=== PATIENT | female | born 1955 | race Caucasian/White ===

== ENCOUNTER → 2019-01-25 | Outpatient (CLI) | payer MEDICARE ==
--- NOTE | 2019-01-25 08:32 | US ---
EXAM DESCRIPTION: Gall Bladder CLINICAL HISTORY: UPPER ABDOMEN PAIN COMPARISON: None Available. TECHNIQUE: Right upper quadrant ultrasound FINDINGS: Pancreas: Visualized portions of the pancreas are unremarkable. Bowel gas obscures some areas. Aorta/inferior vena cava: No aortic aneurysm. Normal inferior vena cava. Liver: The liver is homogeneous in texture with normal echogenicity of the hepatic parenchyma. No focal liver lesion or intrahepatic bile duct dilatation. No liver surface irregularity. Normal appearance of the portal vein and hepatic veins. Gallbladder: Gallbladder appears normal with no intraluminal stones or wall thickening. Common bile duct: Normal caliber measuring 3.2 mm. Right kidney: Renal length is 10.6 cm. Normal cortical echogenicity. Cortical thickness is normal. No hydronephrosis is seen. No renal mass or shadowing calculus. IMPRESSION: No diagnostic abnormality is identified on sonographic examination of the right upper quadrant. Electronically signed by: Kvng Casiano MD 01/25/2019 8:30 AM CDT
== END ==
LOC: US 08:00
PROVIDERS: ATTEND Emergency Medicine
DX: R10.10 Upper abdominal pain, unspecified (principal)

== ENCOUNTER → 2019-02-18 | Outpatient (CLI) | payer MEDICARE ==
--- NOTE | 2019-02-19 10:14 | CT ---
Procedure: CT LUNG SCREENING Exam Date: 02/18/2019. Ordering Provider: EDNA HARRISON Clinical Indication: PERSONAL HISTORY OF TOBACCO USE . Current cigarette smoker. 40 pack years. This patient meets eligibility criteria for low-dose CT lung cancer screening. Comparison: None. Technique: Using a multislice scanner, sequential helical axial imaging was obtained in the thorax, 2.5 mm thickness, 2.5 mm separation, from the level of the thoracic inlet through the lung bases without IV contrast. A low dose protocol was utilized for BMI less than 30: BMI: 26.6. CTDI: 1.76 mGy. 120. kVp. 45 mA. 2D sagittal and coronal reconstructed images, 6.0 mm thickness, were obtained. This exam was performed according to our departmental dose optimization program which includes use of automated exposure control, adjustment of the mA and/or kV according to patient size and/or use of iterative reconstruction technique. Nodule measurements under 10 mm are given as mean value of 3 axes diameters. FINDINGS: Lungs and large airways: Multiple bilateral centimeters blebs in a centrilobular distribution more prevalent in the upper lung mueller. Scattered bilateral peripheral blebs and bulla abutting the pleura. Minimal mosaic heterogeneity of the chest parenchyma bilaterally. No abnormal nodules and no masses. No focal infiltrates. Pleura and space: Apical pleural thickening on the right and scattered bilateral focal pleural thickening. No effusion or pneumothorax. Mediastinum and marlene: evaluation limited by low dose technique and lack of IV contrast. Small lymph nodes with no dominant solid masses. Heart and great vessels: Atherosclerotic calcifications brachiocephalic vessels, aortic arch, thoracic aorta, and coronary vessels. Chest wall, lower neck, axillae: Evaluation also limited by same factors as described above. Calcified right axillary lymph node. Ill-defined nodule in the inferior right thyroid lobe measuring 1.5 x 1.2 cm. Asymmetric fibroglandular tissues and nodular density upper left breast. Upper abdomen: Evaluation limited by low-dose technique. No free air or free fluid. Included adrenal glands and spleen normal size and density. Stomach mildly distended by ingested material. Gallbladder visualized. Osseous structures: Evaluation limited by low dose MIP technique. Scattered endplate spondylosis thoracic spine. No lytic or blastic lesions. IMPRESSION: 1. No abnormal nodules and no masses on screening examination. Emphysematous changes more prevalent in the upper lobes.. [facility] Best Practice Recommendations: please see below for Lung RADS category and FOLLOW-UP.* *Lung RADS category Category 1S - No nodule or definitely benign nodules (probability of malignancy less than 1%). Follow-up: Continue annual screening with Low Dose Chest CT in 12 months. 2. 1.5 cm incidental thyroid nodule. Recommend thyroid US. Reference: J Am Mervat Radiol. 2015 Jun;12(2): 143-50 3. Asymmetry and possible nodule in the upper outer quadrant of the left breast. Consider bilateral diagnostic digital breast tomosynthesis at this facility if patient not enrolled in a breast screening program in the past 12 months at another facility. Comparison with those studies if available would be helpful. Electronically signed by: Mukesh Corrales MD 02/19/2019 10:13 AM CDT
== END ==
LOC: CT 09:30
PROVIDERS: ATTEND Emergency Medicine
DX: Z87.891 Personal history of nicotine dependence (principal); J43.9 Emphysema, unspecified

== ENCOUNTER → 2020-03-09 | Outpatient (CLI) | payer MEDICARE ==
--- NOTE | 2020-03-10 12:47 | CT ---
Procedure: CT LUNG SCREENING Exam Date: March 09, 2020 Ordering Provider: EDNA HARRISON Clinical Indication: PERSONAL HISTORY OF NICOTINE DEPENDENCE current cigarette smoker. 20 pack years. This patient meets eligibility criteria for low-dose CT lung cancer screening. Comparison: February 2019. Technique: Using a multislice scanner, sequential helical axial imaging was obtained in the thorax, 2.5 mm thickness, 2.5 mm separation, from the level of the thoracic inlet through the lung bases without IV contrast. A low dose protocol was utilized for BMI less than 30: BMI: 28. CTDI: 1.76 mGy. 120. kVp. 45 mA. DLP 73 mGy-cm. 2D sagittal and coronal reconstructed images, 6.0 mm thickness, were obtained. This exam was performed according to our departmental dose optimization program which includes use of automated exposure control, adjustment of the mA and/or kV according to patient size and/or use of iterative reconstruction technique. Nodule measurements under 10 mm are given as mean value of 3 axes diameters. FINDINGS: Lungs and large airways: Small bilateral parenchymal blebs in a centrilobular distribution predominantly in the upper lung mueller. Pleural parenchymal scarring/atelectasis inferior lingula stable. Stable bilateral subpleural densities in other segments. Subpleural bibasilar atelectasis stable. No abnormal nodules and no mass. No new or focal infiltrate since the prior study. Pleura and space: Bilateral thickening. No calcifications or evidence of acute process. Mediastinum and marlene: evaluation limited by low dose technique and lack of IV contrast. Small nodes are stable. No dominant soft tissue mass. Heart and great vessels: Pulmonary artery calcifications and atherosclerotic calcifications in the aorta, and several brachiocephalic vessels. Chest wall, lower neck, axillae: Evaluation also limited by same factors as described above. Negative. Upper abdomen: Evaluation limited by low-dose technique. No mass or free fluid distended stomach with possible minimal hiatal hernia. Normal density and size of the adrenal glands and spleen. Partial gallbladder visualization. Osseous structures: Evaluation limited by low dose MIP technique. Spondylosis. Shoulder clavicle sternal arthrosis. IMPRESSION: Stable appearance of lungs compared to the prior study with mild emphysematous changes. No new nodules or masses. [facility] Best Practice Recommendations: please see below for Lung RADS category and FOLLOW-UP.* *Lung RADS category Category 1 - No nodule or definitely benign nodules (probability of malignancy less than 1%). Follow-up: Continue annual screening with Low Dose Chest CT in 12 months. Electronically signed by: Mukesh Corrales MD 03/10/2020 12:45 PM [facility]
--- NOTE | 2020-03-10 12:58 | US ---
US THYROID CLINICAL STATEMENT:64 years Female NONTOXIC SINGLE THYROID NODULE. COMPARISON: None TECHNIQUE: Transcutaneous scanning, grayscale and Doppler modes. FINDINGS: Size right thyroid lobe: 4.0 x 1.8 x 1.8 cm Size left thyroid lobe: 3.7 x 1.4 x 1.3 cm Size isthmus: 0.3 cm Estimated total number of nodules greater than or equal to 1 cm: 1. Heterogeneous echoes bilaterally. Nodule 1: Size: 1.4 x 0.9 x 0.9 cm Location: Right inferior Composition: solid or almost completely solid: 2 points Echogenicity: hypoechoic: 2 points Shape: wider than tall: 0 points Margins: smooth: 0 points Echogenic foci: none: 0 points ACR Total Points: 4; ACR TI-RADS risk category: TR4 - moderately suspicious nodule. Nodule 2: Size: 0.6 x 0.5 x 0.4 cm Location: Left Lower Composition: solid or almost completely solid: 2 points Echogenicity: hypoechoic: 2 points Shape: wider than tall: 0 points Margins: smooth: 0 points Echogenic foci: none: 0 points ACR Total Points: 4; ACR TI-RADS risk category: TR4 - moderately suspicious nodule. Soft tissue within the thyroid gland showing no evidence of dominant solid mass, distinct cysts, fluid collection, or large calcifications. IMPRESSION: 1. Nodule 1: ACR TI-RADS 2017 Category TR4. Recommend: Follow-up ultrasound in 1 year.. Recommendations based upon [facility] Best Practice recommendations and ACR TI-RADS 2017 guidelines. Please see below*. 2. Nodule 2: ACR TI-RADS 2017 Category TR4. Recommend: No further follow-up. 3. Soft tissue in the thyroid gland is unremarkable. *ACR TI-RADS 2017 Recommendations for imaging follow-up of nodules (baseline study): TR1: No FNA or follow up TR2: No FNA or follow up TR3: FNA if >/= 2.5 cm, follow up if 1.5 - 2.4 cm in 1, 3, and 5 years TR4: FNA if >/= 1.5 cm, follow up if 1.0 - 1.4 cm in 1, 2, 3, and 5 years TR5: FNA if >/= 1.0 cm, follow up if 0.5 - 0.9 cm every year for 5 years ACR TI-RADS recommends that no more than two nodules with the highest ACR TI-RADS total point should be biopsied and no more than four nodules should be followed. These recommendations do not apply to patients with increased risk for thyroid cancer or patients with symptomatic thyroid disease. Electronically signed by: Mukesh Corrales MD 03/10/2020 12:57 PM [facility]
--- NOTE | 2020-03-13 17:11 | MAM ---
EXAM DESCRIPTION: 3D Screening BILATERAL : Digital Mammography. CLINICAL HISTORY: 64 years Female ANNUAL SCREENING . No complaints and no family history of breast cancer. Menarche age 17. Childbirth age 19. Menopause age 30. No HRT.. Lifetime risk of developing breast cancer (Tyrer-Cuzick model)(%): 4.4. COMPARISON: Baseline study at this facility. No prior reports available. TECHNIQUE: Bilateral CC and MLO projection full-field images, digital tomosynthesis mammographic technique. Bilateral digital 2-D full-field MLO images. CAD available for 2-D images. FINDINGS: The breast parenchymal density pattern is: Scattered areas of fibroglandular density. No skin thickening or nipple retraction. Axillary nodes. Solitary microcalcifications. No focal, stellate mass or density, focal asymmetry , and no suspicious microcalcifications bilaterally. IMPRESSION: Benign exam. BIRAD CATEGORY: 2 BENIGN FINDINGS. RECOMMENDATIONS: FOLLOW UP: Routine digital bilateral mammographic screening, one year interval from March 2020. Written communication explaining the IMPRESSION and follow-up, will be mailed to the patient and referring health care provider. According to the [employer], yearly mammograms are recommended starting at age 40 and continuing as long as a woman is in good health. Any breast change noted on a breast self-exam should be reported promptly to the patient's healthcare provider. Breast MRI is recommended for women with an approximately 20-25% or greater lifetime risk of breast cancer, including women with a strong family history of breast or ovarian cancer and women who have been treated for Hodgkin's disease. A negative mammographic report should not delay tissue diagnosis in patients with significant clinical history or physical findings. Extremely dense breast tissue limits the sensitivity of digital mammography. Electronically signed by: Mukesh Corrales MD 03/13/2020 5:09 PM [facility]
== END ==
LOC: US 10:00
PROVIDERS: ATTEND Emergency Medicine
DX: Z12.31 Encounter for screening mammogram for malignant neoplasm of breast (principal); J43.9 Emphysema, unspecified; E04.1 Nontoxic single thyroid nodule; Z12.2 Encounter for screening for malignant neoplasm of respiratory organs; Z87.891 Personal history of nicotine dependence
CPT/HCPCS: 76536; 77063; 77067; G0297